=== PATIENT | male | born 1975 | race Caucasian/White ===

== ENCOUNTER 2022-01-20 17:30 | Emergency (ER) | payer OTHER ==
[~2022-01-20] VITALS: Ht 175.3 cm; Wt 99.8 kg
[~2022-01-20 17:30] MED LIST: FLOEARD EACH EYE; TRAM50TA2 PO
[2022-01-20 17:54] VITALS: BP_SYST 134
--- NOTE | 2022-01-20 17:55 | NUR ---
PT TRIAGED AND PLACED IN ED LOBBY FOR AVAILABLE BED IN MAIN ED, MADE AWARE OF MSE NEEDS
--- NOTE | 2022-01-20 17:57 | NUR ---
PT RETURNS TO ER TODAY STATING HE FEELS LIKE THERE IS STILLS SOMETHING IN HIS RIGHT EYE. PT WAS SEEN HERE EARLIER TODAY BY FOR SAME PROBLEM. PT DENIES VISUAL CHANGES, STATES IT IS IRRITATED. PT IS AMBULATORY, AAO4, VSS
--- NOTE | 2022-01-20 20:30 | NUR ---
DR. DONATO CALLED PATIENT IN WAITING ROOM FOR MSE. PATIENT NOT IN WAITING ROOM.
--- NOTE | 2022-01-20 20:45 | NUR ---
PATIENT CALLED FOR BED PLACEMENT. NO ANSWER IN THE WAITING ROOM.
--- NOTE | 2022-01-20 21:00 | NUR ---
PATIENT CALLED FOR BED PLACEMENT. NO PATIENT IN WAITING ROOM. PATIENT LEFT WITHOUT BEING SEEN.
[2022-01-20 21:35] VITALS: BP_SYST 134
== END 2022-01-20 21:35 | disposition left against medical advice (07) ==
LOC: SED 17:30
DX: H57.89 Other specified disorders of eye and adnexa (principal); Z53.21 Procedure and treatment not carried out due to patient leaving prior to being seen by health care provider